=== PATIENT | female | born 2000 | race Caucasian/White ===

== ENCOUNTER 2024-03-24 09:09 | Emergency (ER) | payer BC ==
[~2024-03-24] VITALS: Ht 165.1 cm; Wt 49.9 kg
[2024-03-24 09:14] VITALS: BP 128/68; TEMP 98.5
[2024-03-24 09:25] VITALS: O2SAT 100
== END 2024-03-24 09:41 | disposition home or self-care (01) ==
LOC: ER 09:13
DX: S00.03XA Contusion of scalp, initial encounter (principal); W18.2XXA Fall in (into) shower or empty bathtub, initial encounter; Y93.89 Activity, other specified; Y92.091 Bathroom in other non-institutional residence as the place of occurrence of the external cause; Y99.8 Other external cause status